=== PATIENT | female | born 2000 | race American Indian/Alaskan Native ===

== ENCOUNTER 2019-10-26 16:32 | Outpatient (CLI) | payer OTHER ==
[2019-10-26] MEDS ORDERED: PRENATAL TABLE1 EAC1 PO (17:39)
== END 2019-10-27 13:47 | disposition home or self-care (01) ==
LOC: LDR 16:32 → OBS/DEL 16:32
DX: O26.893 Other specified pregnancy related conditions, third trimester (principal); R10.2 Pelvic and perineal pain; O23.43 Unspecified infection of urinary tract in pregnancy, third trimester

== ENCOUNTER 2019-11-29 08:45 | Inpatient (IN) | payer OTHER ==
[~2019-11-29] VITALS: Ht 157.5 cm; Wt 2.7 kg
[~2019-11-29 08:45] MED LIST: PRENATAL TABLE1 EAC1 PO
[2019-11-30] MEDS ORDERED: SYNTHROID50 MCG PO (08:47)
[2019-11-30] MEDS ORDERED: LOTREL 10-40 M1 EACH PO (08:47)
== END 2019-12-09 15:00 | disposition home or self-care (01) | DRG 785 ==
LOC: OB/GYN 12-04 18:21 → LDR 12-04 18:21 → OB/GYN 12-05 08:45 → O/R 12-05 21:00 → OB/GYN 12-06 00:03
PROVIDERS: ADMIT Obstetrics & Gynecology
PROC: 4A1HXCZ Monitoring of Products of Conception, Cardiac Rate, External Approach (ICD-10-PCS; 2019-12-04)
PROC: 0UL70ZZ Occlusion of Bilateral Fallopian Tubes, Open Approach (ICD-10-PCS; 2019-12-05)
PROC: 10D00Z1 Extraction of Products of Conception, Low, Open Approach (ICD-10-PCS; principal; 2019-12-05 21:30)
DX: O75.3 Other infection during labor (principal); J11.1 Influenza due to unidentified influenza virus with other respiratory manifestations; Z3A.38 38 weeks gestation of pregnancy; Z37.0 Single live birth; Z30.2 Encounter for sterilization